=== PATIENT | female | born 1950 | race Caucasian/White ===

== ENCOUNTER 2016-12-02 06:30 | Day surgery (SDC) | payer BC ==
[~2016-12-02 06:30] MED LIST: Lactated Ringers 1,000 ML IV SCH
--- NOTE | 2016-12-02 07:03 | PCM.PREANE ---
Preanesthetic Assessment - Anesthesia/Transfusion/Family Hx Anesthesia History: Prior Anesthesia Without Reaction Family History of Anesthesia Reaction: No Transfusion History: No Prior Transfusion(s) Intubation History: Unknown - Review of Systems General: No Symptoms Pulmonary: No Symptoms Cardiovascular: No Symptoms Gastrointestinal: No Symptoms Neurological: No Symptoms Other: Reports: None - Physical Assessment Height: 1.7 m Weight: 102.058 kg ASA Class: 2 Mental Status: Alert & Oriented x3 Airway Class: Mallampati = 2 Dentition: Reports: Normal Dentition Thyro-Mental Finger Breadths: 3 Mouth Opening Finger Breadths: 2 (h/o TMJ poroblems- ok now) ROM/Head Extension: Full Lungs: Clear to Auscultation, Normal Respiratory Effort Cardiovascular: Regular Rate, Regular Rhythm - Lab Values: Laboratory Last Values WBC 6.25 K/uL (4.0-11.0) 12/01/16 14:42 RBC 4.56 M/uL (4.30-5.90) 12/01/16 14:42 Hgb 14.5 g/dL (12.0-16.0) 12/01/16 14:42 Hct 41.9 % (36.0-46.0) 12/01/16 14:42 MCV 91.9 fL (80.0-98.0) 12/01/16 14:42 MCH 31.8 pg (27.0-32.0) 12/01/16 14:42 MCHC 34.6 g/dL (31.0-37.0) 12/01/16 14:42 RDW Std Deviation 43.9 fl (28.0-62.0) 12/01/16 14:42 RDW Coeff of Ceci 13 % (11.0-15.0) 12/01/16 14:42 Plt Count 202 K/uL (150-400) 12/01/16 14:42 MPV 9.70 fL (7.40-12.00) 12/01/16 14:42 Nucleated RBC % 0.0 /100WBC 12/01/16 14:42 Nucleated RBCs # 0 K/uL 12/01/16 14:42 HCG, Qual NEGATIVE (NEG) 12/01/16 14:42 - Allergies Allergies/Adverse Reactions: Allergies Allergy/AdvReac Type Severity Reaction Status Date / Time No Known Allergies Allergy Verified 07/20/13 10:16 - Blood Blood Available: No - Anesthesia Plan Pre-Op Medication Ordered: None - Acknowledgements Anesthesia Type Planned: General Anesthesia Pt an Appropriate Candidate for the Planned Anesthesia: Yes Alternatives and Risks of Anesthesia Discussed w Pt/Guardian: Yes Pt/Guardian Understands and Agrees with Anesthesia Plan: Yes PreAnesthesia Questionnaire HEENT History: Reports: Glaucoma Other HEENT History: wears glasses Respiratory History: Reports: Sleep Apnea Other Respiratory History: uses CPAP Gastrointestinal History: Reports: Chronic Diarrhea, Colon Polyp Other Gastrointestinal History: thinks she possibly has IBS Genitourinary History: Reports: None ACCESS RN History: Reports: , Spontaneous Musculoskeletal History: Reports: Other (See Below) Other Musculoskeletal History: neck and shoulder pain ( back and right shoulder steroid injection in august- occasioanl schiatica pain after exertion) Neurological History: Reports: Vertigo (on meclizine prn) Psychiatric History: Reports: Anxiety, Depression Endocrine/Metabolic History: Reports: Obesity/BMI 30+ - Past Surgical History Head Surgeries/Procedures: Reports: None GI Surgical History: Reports: Colonoscopy (x2) Female Surgical History: Reports: D&C Other Female Surgeries/Procedures: hx hysteroscopy with D&C Musculoskeletal Surgical History: Reports: Arthroscopic Knee (for torn meniscus) - SUBSTANCE USE Smoking Status *Q: Never Smoker Days Per Week of Alcohol Use: 0 Number of Drinks Per Day: 0 Total Drinks Per Week: 0 Recreational Drug Use History: No - HOME MEDS Home Medications: Home Meds LORazepam [Ativan] 0.5 - 1 tab PO ASDIRECTED PRN 06/02/14 [History] Latanoprost [Xalatan 0.005% Ophth Soln] 1 drop EYEBOTH BEDTIME 11/26/16 [History ] Naproxen Sodium [Aleve] 1 tab PO ASDIRECTED PRN 11/26/16 [History] tiZANidine [Zanaflex] 2 tab PO ASDIRECTED PRN 11/26/16 [History] - CURRENT (IN HOUSE) MEDS Current Meds: Current Medications Lactated Ringer's (Ringers, Lactated) 1,000 mls @ 100 mls/hr IV ASDIRECTED [facility]
[2016-12-02] MEDS ORDERED: fentaNYL 250 MCG/5 ML SDV ONE (07:17)
[2016-12-02] MEDS ORDERED: Midazolam 1 MG/ML 2 ML SDV ONE (07:17)
[2016-12-02] MEDS ORDERED: Dexamethasone 4 MG/ML 5 ML MDV ONE (07:17)
[2016-12-02] MEDS ORDERED: Propofol 200 MG/20 ML SDV ONE (07:17)
[2016-12-02] MEDS ORDERED: Ondansetron 4 MG/2 ML SDV ONE (07:17)
[2016-12-02] MEDS ORDERED: Ketorolac 30 MG/ML SDV ONE (07:30)
--- NOTE | 2016-12-02 08:38 | PCM.OPNOTE ---
- General Post-Op/Procedure Note Date of Surgery/Procedure: 12/02/16 Operative Procedure(s): Hysteroscopic polypectomy, fractional dilatation and curettage Findings: Uterus anteverted with grade 2 prolapse, uterine polyp adjacent to right tubal ostium, otherwise normal endometrial cavity, sounds to 7 cm. Pre Op Diagnosis: postmenopausal bleeding, uterine polyp Post-Op Diagnosis: Same Anesthesia Technique: General LMA Primary Surgeon: Salena Brandon Anesthesia Provider: Rhett Lopez Fruit Bar Maker: Tan Diaz Pathology: Uterine polyp, endometrial curettings, endocervical curettings Fluid Replacement, Intraop: 700 (hysteroscopic deficit 200 ml NS) EBL in mLs: 10 Complications: None known Condition: Good
[2016-12-02] MEDS ORDERED: fentaNYL 100 MCG/2 ML SDV IVPUSH PRN (08:49)
--- NOTE | 2016-12-02 10:12 | OR ---
SURGEON: Salena Brandon M.D. DATE OF PROCEDURE: 12/02/2016 PREOPERATIVE DIAGNOSIS: Postmenopausal bleeding with uterine polyp. POSTOPERATIVE DIAGNOSIS: Postmenopausal bleeding with uterine polyp. PROCEDURE: Hysteroscopic polypectomy with fractional D and C. SPECIAL SKILLS OFFICER: KHANH Buckley4. ANESTHESIA: General. ESTIMATED BLOOD LOSS: Minimal. FINDINGS: The uterus is anteverted with a grade 2-3 prolapse. The cervix was easily dilated to a 6 mm Hegar dilator. There was excellent visualization of the uterine cavity. Bilateral tubal ostia were visualized. Adjacent to the right tubal ostium was an irregularly shaped lesion polypoid in nature, but also may be an old scar. This was excised and sent to Pathology. No other lesions were noted. Hysteroscopic deficit was 200 mL of normal saline. IV FLUIDS: 750 mL of lactated Ringer's. COMPLICATIONS: None known. DISPOSITION: Stable to recovery. BRIEF HISTORY: This is a 66-year-old female. She presents with postmenopausal bleeding. The endometrium was slightly thickened on ultrasound with a saline enhanced ultrasound showing a uterine polyp. Additionally endometrial biopsy performed in the office was consistent with an endometrial polyp. She is therefore consented for a hysteroscopic polypectomy and fractional D and C with risks discussed including bleeding, infection, uterine perforation with injury to surrounding organs, risk of fluid overload. Understanding all these risks, she does desire to proceed. DESCRIPTION OF PROCEDURE: With the patient in dorsal lithotomy position, under adequate general analgesia, the perineum and vagina were prepped with Betadine and draped in the usual fashion for vaginal surgery. The bladder had been drained. SCDs were in place and an appropriate time-out was held. Bimanual examination revealed an anteverted 8-week size uterus with a moderate degree of prolapse. The bivalve speculum was placed into the vagina. The cervix was grasped with an Allis clamp. The cervix was easily dilated to a 6 mm Hegar dilator. The hysteroscope was then placed into the uterine cavity utilizing the fluid flow for the final hydration of the 6.5 mm scope. There was excellent visualization of the uterine cavity. Hysteroscopic scissors were used to cut at the base of the lesion near the right uterine cornu and this was then grasped with a grasper and removed. With this being completed, having had excellent visualization of the uterine cavity with no other lesions identified, sharp curettage of the endocervix was performed with the box curette and this was collected with a Cytobrush. Sharp curettage of the endometrium was then performed with a curette and a very small amount of tissue was obtained. Final sponge, needle, and instrument counts were reported as correct. After all of the instruments had been removed from the vagina, there were no known complications. The patient was transferred to recovery in good condition. DANIELLE / KEIRA /[id number]
[2016-12-02 10:34] VITALS: BP 134/69
== END 2016-12-02 10:00 | disposition home or self-care (01) ==
LOC: MW.SDS 06:30
PROVIDERS: ATTEND Obstetrics & Gynecology
DX: N84.0 Polyp of corpus uteri (principal); K58.9 Irritable bowel syndrome, unspecified; F32.9 Major depressive disorder, single episode, unspecified; F41.9 Anxiety disorder, unspecified; H40.9 Unspecified glaucoma; G47.30 Sleep apnea, unspecified; E66.9 Obesity, unspecified; Z86.010 Personal history of colon polyps; Z99.89 Dependence on other enabling machines and devices; Z79.899 Other long term (current) drug therapy; Z98.890 Other specified postprocedural states; Z68.35 Body mass index [BMI] 35.0-35.9, adult
CPT/HCPCS: 36415; 58558; 84703; 85027; J1100; J1885; J2250; J2405; J3010; J7120; 00952; 88305; J2704

== ENCOUNTER 2016-12-06 16:46 | Observation (INO) | payer BC ==
[2016-12-06] MEDS ORDERED: Sodium Chloride 0.9% 2.5 ML Syringe FLUSH PRN (16:53)
[2016-12-06] MEDS ORDERED: Sodium Chloride 0.9% 10 ML Syringe FLUSH PRN (16:53)
[2016-12-06] MEDS ORDERED: Aspirin 81 MG Tab.Chew PO ONE (16:53)
[2016-12-06] MEDS ORDERED: Ondansetron 4 MG/2 ML SDV IVPUSH ONE (16:53)
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
[2016-12-06] MEDS ORDERED: Sodium Chloride 0.9% 1,000 ML IV SCH (17:00)
[2016-12-06] MEDS: Morphine 2 MG/ML Syringe IVPUSH ONE ×2 (17:28→19:38)
[2016-12-06] MEDS: Nitroglycerin 0.4 MG Tab.SL SL PRN ×3 (17:35→17:46)
[2016-12-06 18:04] LABS: CHLORIDE,CL 107 mmol/L (98-110); SODIUM,NA 140 mmol/L (136-146)
[2016-12-06] MEDS ORDERED: Morphine 2 MG/ML Syringe IVPUSH PRN (19:46)
[2016-12-06] MEDS ORDERED: Ondansetron 4 MG/2 ML SDV IVPUSH PRN (19:47)
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
[2016-12-06] MEDS: Latanoprost 0.005% Ophth Soln 2.5 ML Bottle EYEBOTH SCH ×2 (20:56→20:57)
[2016-12-06] MEDS: Acetaminophen 325 MG Tab PO PRN (21:48)
[2016-12-07] MEDS: Acetaminophen 325 MG Tab PO PRN ×2 (04:27→09:02)
[2016-12-07] MEDS ORDERED: Lisinopril 10 MG Tab PO ONE ×2 (08:58)
[2016-12-07 09:19] VITALS: BP 151/66
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
== END 2016-12-07 09:07 | disposition home or self-care (01) ==
LOC: MW.ED 16:46 → MW.ICU 17:37
PROVIDERS: ADMIT Internal Medicine; ATTEND Internal Medicine
DX: R07.89 Other chest pain (principal); H40.9 Unspecified glaucoma; G47.30 Sleep apnea, unspecified; F41.9 Anxiety disorder, unspecified; Z99.89 Dependence on other enabling machines and devices; Z87.19 Personal history of other diseases of the digestive system; Z98.890 Other specified postprocedural states
CPT/HCPCS: 36415; 71010; 80053; 84484; 85025; 85610; 93005; 96361; 96374; 99285; A9270; G0378; J2405; J7040; 99284; J2270